=== PATIENT | male | born 1970 | race African-American/Black ===

== ENCOUNTER 2023-01-21 01:17 | Inpatient (IN) | payer MEDICAID ==
[~2023-01-21] VITALS: Ht 180.3 cm; Wt 106.3 kg
[2023-01-21] MEDS ORDERED: MORPHINE SULFATE 4 MG/ML CPJ (NOT FOR IM USE) IV ONE (02:15)
[2023-01-21] MEDS ORDERED: HYDRALAZINE 20MG/ML VIAL IV ONE (02:15)
[2023-01-21] MEDS ORDERED: ONDANSETRON HCL 4MG/2ML INJ IV ONE ×2 (02:15→03:00)
[2023-01-21 02:18] LABS: BASOPHILS % 0.4 % (0.0-2.0); EOSINOPHILS % 1.9 % (0.0-5.0); HEMATOCRIT. 48.5 % (42.0-52.0); HEMOGLOBIN. 16.4 g/dL (14.0-18.0); LYMPHOCYTES % 27.2 % (20.0-50.0); MEAN CORPUSCULAR HEMOGLOBIN 27.8 pg (28.0-32.0); MEAN CORPUSCULAR VOLUME 82.1 fL (80.0-94.0); MEAN PLATELET VOLUME 7.6 fl (7.4-10.4); MONOCYTES % 6.6 % (2.0-8.0); NEUTROPHILS % 63.9 % (40.0-76.0); PLATELET 181 x1000/uL (130-400); RED BLOOD CELL COUNT 5.91 mill/uL (4.7-6.1); RED CELL DISTRIBUTION WIDTH 14.6 % (11.6-14.6)
[2023-01-21 02:27] LABS: CHLORIDE 107 mEq/L (98-107)
[2023-01-21] MEDS ORDERED: LORAZEPAM 2MG/ML CPJ IV ONE (02:45)
[2023-01-21] MEDS ORDERED: HYDROMORPHONE HCL/PF 2MG/ML CPJ IV ONE (03:15)
[2023-01-21] MEDS ORDERED: HYDROMORPHONE HCL/PF 2MG/ML CPJ IV NR (03:30)
[2023-01-21 03:59] LABS: *AMPHETAMINES SCREEN URINE NEGATIVE (NEGATIVE); *BARBITURATES SCREEN URINE NEGATIVE (NEGATIVE); *BENZODIAZEPINES SCREEN URINE NEGATIVE (NEGATIVE); *COCAINE SCREEN URINE NEGATIVE (NEGATIVE); CANNABINOID URINE SCREEN NEGATIVE (NEGATIVE); METHADONE URINE SCREEN NEGATIVE (NEGATIVE); OPIATES URINE SCREEN NEGATIVE (NEGATIVE); PHENCYCLIDINE URINE SCREEN NEGATIVE (NEGATIVE)
[2023-01-21] MEDS ORDERED: HYDROCODONE/ACETAMINOPHEN 5/325MG TABLET PO NR (09:45)
[2023-01-21] MEDS ORDERED: ONDANSETRON HCL 4MG/2ML INJ IV PRN (11:00)
[2023-01-21] MEDS: AMLODIPINE 10MG TABLET PO SCH (11:12)
[2023-01-21] MEDS: HYDRALAZINE HCL 50MG TABLET PO SCH ×2 (12:24→20:30)
[2023-01-21] MEDS: ENOXAPARIN 30MG/0.3ML SYR SUBCUT SCH ×2 (13:05→20:29)
[2023-01-21] MEDS: NITROGLYCERIN OINT 1GM/INCH UDPKT TD SCH ×2 (14:38→20:31)
[2023-01-21] MEDS ORDERED: CLONIDINE 0.2MG TABLET PO NR (17:15)
[2023-01-21] MEDS ORDERED: DOCUSATE SODIUM 250MG CAPSULE PO PRN (17:15)
[2023-01-21] MEDS ORDERED: LOSARTAN POTASSIUM 100 MG TABLET PO SCH (18:15)
[2023-01-21 20:00] VITALS: BP 169/96
[2023-01-21] MEDS: ACETAMINOPHEN 325MG TABLET PO PRN (20:30)
[2023-01-21 22:18] VITALS: BP 169/96
[2023-01-21] MEDS: HYDROCODONE/ACETAMINOPHEN 10/325MG TABLET PO PRN (22:55)
[2023-01-21] MEDS: CLONIDINE 0.1MG TABLET PO PRN (22:55)
[2023-01-21 23:50] VITALS: BP 161/73
[2023-01-21] MEDS ORDERED: METO-396 PO (23:54)
[2023-01-21] MEDS ORDERED: AMLO2.5T45 PO (23:54)
[2023-01-22] VITALS (67 sets, daily range): BP systolic 101–157; BP diastolic 45–93
[2023-01-22] MEDS ORDERED: IOHEXOL-300 100 ML BOTTLE ONE (03:32)
[2023-01-22] MEDS: HYDROCODONE/ACETAMINOPHEN 10/325MG TABLET PO PRN (04:16)
[2023-01-22] MEDS ORDERED: NALOXONE HCL 0.4MG/ML VIAL IV PRN (05:30)
[2023-01-22] MEDS ORDERED: NITROGLYCERIN OINT 1GM/INCH UDPKT TD SCH (06:00)
[2023-01-22] MEDS ORDERED: HYDRALAZINE HCL 50MG TABLET PO SCH ×2 (06:00→14:00)
[2023-01-22] MEDS: LORAZEPAM 2MG/ML CPJ IV PRN ×2 (08:19→19:18)
[2023-01-22] MEDS: AMLODIPINE 10MG TABLET PO SCH (08:20)
[2023-01-22] MEDS ORDERED: LOSARTAN POTASSIUM 100 MG TABLET PO SCH (09:00)
[2023-01-22] MEDS ORDERED: ASPIRIN 81MG TABLET PO SCH (09:00)
[2023-01-22] MEDS: LABETALOL HCL 100 MG in DEXT 5% WATER 80 ML IV PRN ×6 (10:13→23:02)
[2023-01-22 10:59] LABS: HEMATOCRIT. 42.2 % (42.0-52.0); HEMOGLOBIN. 14.3 g/dL (14.0-18.0); MEAN CORPUSCULAR HEMOGLOBIN 27.7 pg (28.0-32.0); MEAN CORPUSCULAR VOLUME 81.5 fL (80.0-94.0); MEAN PLATELET VOLUME 8.4 fl (7.4-10.4); PLATELET 145 x1000/uL (130-400); RED BLOOD CELL COUNT 5.18 mill/uL (4.7-6.1)
[2023-01-22] MEDS: NITROGLYCERIN OINT 1GM/INCH UDPKT TD SCH ×3 (11:49→23:01)
[2023-01-22 13:22] LABS: PLATELET ESTIMATE NORMAL
[2023-01-22] MEDS: HYDRALAZINE HCL 50MG TABLET PO SCH ×2 (14:02→21:29)
[2023-01-22] MEDS: PIPERACILLIN/TAZOBACTAM 3.375 G in DEXTROSE 5% WATER 50 ML IV SCH ×2 (14:53→21:29)
[2023-01-22] MEDS ORDERED: VANCOMYCIN 2,000 MG in DEXT 5% WATER 500 ML IV NR (16:00)
[2023-01-22] MEDS ORDERED: IOHEXOL-350 100 ML BOTTLE ONE ×2 (16:43)
[2023-01-22] MEDS: DEXT 5%/0.9% NACL 1,000 ML IV SCH (17:39)
[2023-01-22] MEDS ORDERED: SODIUM POLYSTYRENE SULFONATE 15 G/60 ML BOT PO NR (18:29)
[2023-01-22 18:49] LABS: CREATINE KINASE 366 IU/L (39-308)
[2023-01-22 19:15] LABS: BG BASE EXCESS -3.6 mmol/L (-2.0-2.0); BG CARBOXYHEMOGLOBIN 0.7 % (0.5-1.5); BG DEOXYHEMOGLOBIN 8.6 % (0.0-5.0); BG FRACTION INSPIRED OXYGEN 21; BG HCO3 ACT 19.1 mmol/L (22.0-26.0); BG METHEMOGLOBIN 0.6 % (0.0-1.5); BG OXYGEN SATURATION 91.3 % (92.0-98.5); BG OXYHEMOGLOBIN 90.1 % (94.0-97.0); BG PCO2 28.7 mmHg (35.0-45.0); BG PO2 56.1 mmHg (75.0-100.0); BG SAMPLE SITE RIGHT RADIAL; BG VENT MODE ROOM AIR
[2023-01-23] VITALS (72 sets, daily range): BP systolic 104–163; BP diastolic 45–101
[2023-01-23] MEDS: ACETAMINOPHEN 325MG TABLET PO PRN (01:44)
[2023-01-23] MEDS: LABETALOL HCL 100 MG in DEXT 5% WATER 80 ML IV PRN ×6 (02:15→22:28)
[2023-01-23] MEDS: DEXT 5%/0.9% NACL 1,000 ML IV SCH ×3 (02:15→22:01)
[2023-01-23] MEDS: HYDROCODONE/ACETAMINOPHEN 10/325MG TABLET PO PRN ×3 (03:03→22:28)
[2023-01-23] MEDS ORDERED: VANCOMYCIN 1G PREMIX 200 ML IV SCH (04:00)
[2023-01-23] MEDS: LORAZEPAM 2MG/ML CPJ IV PRN ×2 (05:19→09:27)
[2023-01-23] MEDS: HYDRALAZINE HCL 50MG TABLET PO SCH (05:28)
[2023-01-23] MEDS: PIPERACILLIN/TAZOBACTAM 3.375 G in DEXTROSE 5% WATER 50 ML IV SCH ×3 (05:28→19:19)
[2023-01-23] MEDS: NITROGLYCERIN OINT 1GM/INCH UDPKT TD SCH ×3 (05:28→22:01)
[2023-01-23 05:33] LABS: HEMOGLOBIN. 13.9 g/dL (14.0-18.0); MEAN CORPUSCULAR HEMOGLOBIN 27.4 pg (28.0-32.0); MEAN CORPUSCULAR VOLUME 82.5 fL (80.0-94.0); MEAN PLATELET VOLUME 8.3 fl (7.4-10.4); PLATELET 82 x1000/uL (130-400); RED BLOOD CELL COUNT 5.09 mill/uL (4.7-6.1); RED CELL DISTRIBUTION WIDTH 15.5 % (11.6-14.6)
[2023-01-23] MEDS ORDERED: LOSARTAN POTASSIUM 25 MG TABLET PO SCH (09:00)
[2023-01-23] MEDS: PANTOPRAZOLE SODIUM 40 MG/VIAL IV SCH (09:27)
[2023-01-23 10:17] LABS: INR 1.3; PARTIAL THROMBOPLASTIN TIME 33.9 sec (23.4-31.0)
[2023-01-23] MEDS ORDERED: HEPARIN 1000 UNITS/ML 10ML ONE (10:30)
[2023-01-23 10:38] LABS: PLATELET ESTIMATE DECREASED
[2023-01-23 10:39] LABS: CLARITY URINE TURBID (CLEAR); COLOR URINE DARK YELLOW (YELLOW); KETONES URINE TRACE (NEGATIVE); LEUKOCYTE ESTERASE URINE 1+ (NEGATIVE); NITRITE URINE NEGATIVE (NEGATIVE); OCCULT BLOOD URINE 3+ (NEGATIVE); PH URINE 5.5 (4.5-8.0); PROTEIN URINE 3+ (NEGATIVE); SPECIFIC GRAVITY URINE 1.041 (1.005-1.030)
[2023-01-23 15:09] LABS: HEPATITIS B SURFACE ANTIGEN NEGATIVE
[2023-01-24] VITALS (90 sets, daily range): BP systolic 87–144; BP diastolic 55–92
[2023-01-24] MEDS: LORAZEPAM 2MG/ML CPJ IV PRN ×3 (00:37→15:14)
[2023-01-24] MEDS: LABETALOL HCL 100 MG in DEXT 5% WATER 80 ML IV PRN ×5 (01:05→22:11)
[2023-01-24] MEDS: IPRATROPIUM BROMIDE (0.02%) 0.5MG/2.5ML NEB HHN SCH ×2 (04:21→15:19)
[2023-01-24] MEDS: ACETAMINOPHEN 325MG TABLET PO PRN (04:49)
[2023-01-24] MEDS: NITROGLYCERIN OINT 1GM/INCH UDPKT TD SCH ×3 (04:51→22:06)
[2023-01-24 05:32] LABS: HEMATOCRIT. 38.7 % (42.0-52.0); HEMOGLOBIN. 13.1 g/dL (14.0-18.0); MEAN CORPUSCULAR HEMOGLOBIN 27.6 pg (28.0-32.0); MEAN CORPUSCULAR VOLUME 81.3 fL (80.0-94.0); MEAN PLATELET VOLUME 8.9 fl (7.4-10.4); PLATELET 82 x1000/uL (130-400); RED BLOOD CELL COUNT 4.76 mill/uL (4.7-6.1); RED CELL DISTRIBUTION WIDTH 15.5 % (11.6-14.6)
[2023-01-24] MEDS: PANTOPRAZOLE SODIUM 40 MG/VIAL IV SCH (08:20)
[2023-01-24] MEDS: PIPERACILLIN/TAZOBACTAM 3.375 G in DEXTROSE 5% WATER 50 ML IV SCH ×2 (08:20→20:52)
[2023-01-24 09:37] LABS: PLATELET ESTIMATE DECREASED
[2023-01-24 09:55] LABS: BG BASE EXCESS -4.3 mmol/L (-2.0-2.0); BG CARBOXYHEMOGLOBIN 0.6 % (0.5-1.5); BG DEOXYHEMOGLOBIN 3.8 % (0.0-5.0); BG HCO3 ACT 19.5 mmol/L (22.0-26.0); BG METHEMOGLOBIN 0.2 % (0.0-1.5); BG OXYGEN SATURATION 96.2 % (92.0-98.5); BG OXYHEMOGLOBIN 95.4 % (94.0-97.0); BG PCO2 32.5 mmHg (35.0-45.0); BG PH 7.397 (7.350-7.450); BG PO2 81.9 mmHg (75.0-100.0); BG SAMPLE SITE RIGHT RADIAL; BG TOTAL HEMOGLOBIN 14.1 g/dL (12.0-18.0); BG VENT MODE ROOM AIR
[2023-01-24] MEDS ORDERED: LORAZEPAM 2MG/ML CPJ IV PRN (10:35)
[2023-01-24] MEDS ORDERED: VANCOMYCIN 1G PREMIX 200 ML IV NR (18:00)
[2023-01-25] VITALS (86 sets, daily range): BP systolic 93–144; BP diastolic 55–89
[2023-01-25] MEDS: ACETAMINOPHEN 325MG TABLET PO PRN ×2 (00:41→22:19)
[2023-01-25] MEDS: LABETALOL HCL 100 MG in DEXT 5% WATER 80 ML IV PRN ×5 (00:41→19:59)
[2023-01-25 05:41] LABS: HEMATOCRIT. 39.3 % (42.0-52.0); HEMOGLOBIN. 13.1 g/dL (14.0-18.0); MEAN CORPUSCULAR HEMOGLOBIN 27.4 pg (28.0-32.0); MEAN PLATELET VOLUME 8.6 fl (7.4-10.4); PLATELET 91 x1000/uL (130-400); RED CELL DISTRIBUTION WIDTH 15.8 % (11.6-14.6)
[2023-01-25] MEDS: NITROGLYCERIN OINT 1GM/INCH UDPKT TD SCH ×3 (06:25→22:19)
[2023-01-25 07:24] LABS: PLATELET ESTIMATE DECREASED
[2023-01-25] MEDS: PIPERACILLIN/TAZOBACTAM 3.375 G in DEXTROSE 5% WATER 50 ML IV SCH ×2 (08:01→20:28)
[2023-01-25] MEDS: PANTOPRAZOLE SODIUM 40 MG/VIAL IV SCH (08:01)
[2023-01-25] MEDS: IPRATROPIUM BROMIDE (0.02%) 0.5MG/2.5ML NEB HHN SCH ×3 (08:09→21:06)
[2023-01-25] MEDS: LORAZEPAM 2MG/ML CPJ IV PRN (13:55)
[2023-01-26] VITALS (73 sets, daily range): BP systolic 99–153; BP diastolic 46–102
[2023-01-26] MEDS: LABETALOL HCL 100 MG in DEXT 5% WATER 80 ML IV PRN ×8 (00:03→23:53)
[2023-01-26] MEDS: IPRATROPIUM BROMIDE (0.02%) 0.5MG/2.5ML NEB HHN SCH ×4 (02:13→20:29)
[2023-01-26] MEDS: LORAZEPAM 2MG/ML CPJ IV PRN (02:42)
[2023-01-26] MEDS: NITROGLYCERIN OINT 1GM/INCH UDPKT TD SCH ×3 (05:41→21:37)
[2023-01-26 05:42] LABS: HEMATOCRIT. 38.3 % (42.0-52.0); HEMOGLOBIN. 12.8 g/dL (14.0-18.0); MEAN CORPUSCULAR HEMOGLOBIN 27.2 pg (28.0-32.0); MEAN CORPUSCULAR VOLUME 81.7 fL (80.0-94.0); MEAN PLATELET VOLUME 8.4 fl (7.4-10.4); PLATELET 77 x1000/uL (130-400); RED BLOOD CELL COUNT 4.69 mill/uL (4.7-6.1); RED CELL DISTRIBUTION WIDTH 15.5 % (11.6-14.6)
[2023-01-26 07:51] LABS: PLATELET ESTIMATE DECREASED
[2023-01-26] MEDS: PIPERACILLIN/TAZOBACTAM 3.375 G in DEXTROSE 5% WATER 50 ML IV SCH ×2 (09:00→20:18)
[2023-01-26] MEDS: PANTOPRAZOLE SODIUM 40 MG/VIAL IV SCH (09:00)
[2023-01-26] MEDS: ACETAMINOPHEN 325MG TABLET PO PRN ×2 (14:27→20:19)
[2023-01-26] MEDS: HYDROCODONE/ACETAMINOPHEN 10/325MG TABLET PO PRN (14:38)
[2023-01-26] MEDS: CEFEPIME 1,000 MG in DEXTROSE 5% WATER 50 ML IV SCH (21:12)
[2023-01-27] VITALS (87 sets, daily range): BP systolic 106–156; BP diastolic 55–98
[2023-01-27] MEDS: LORAZEPAM 2MG/ML CPJ IV PRN ×3 (01:22→22:32)
[2023-01-27] MEDS: LABETALOL HCL 100 MG in DEXT 5% WATER 80 ML IV PRN ×9 (01:55→22:26)
[2023-01-27] MEDS: IPRATROPIUM BROMIDE (0.02%) 0.5MG/2.5ML NEB HHN SCH ×3 (02:12→20:30)
[2023-01-27 06:04] LABS: HEMATOCRIT. 38.9 % (42.0-52.0); HEMOGLOBIN. 13.1 g/dL (14.0-18.0); MEAN CORPUSCULAR HEMOGLOBIN 27.4 pg (28.0-32.0); MEAN CORPUSCULAR VOLUME 81.5 fL (80.0-94.0); MEAN PLATELET VOLUME 8.4 fl (7.4-10.4); PLATELET 113 x1000/uL (130-400); RED BLOOD CELL COUNT 4.78 mill/uL (4.7-6.1); RED CELL DISTRIBUTION WIDTH 15.7 % (11.6-14.6)
[2023-01-27] MEDS: NITROGLYCERIN OINT 1GM/INCH UDPKT TD SCH ×3 (06:05→22:21)
[2023-01-27] MEDS: ACETAMINOPHEN 325MG TABLET PO PRN ×2 (06:06→16:28)
[2023-01-27] MEDS: PANTOPRAZOLE SODIUM 40 MG/VIAL IV SCH (08:30)
[2023-01-27 10:04] LABS: PLATELET ESTIMATE SLIGHTLY DECREASED
[2023-01-27] MEDS: CEFEPIME 1,000 MG in DEXTROSE 5% WATER 50 ML IV SCH (22:19)
[2023-01-28] VITALS (84 sets, daily range): BP systolic 114–167; BP diastolic 45–99
[2023-01-28] MEDS: LABETALOL HCL 100 MG in DEXT 5% WATER 80 ML IV PRN ×2 (00:18→01:53)
[2023-01-28] MEDS: IPRATROPIUM BROMIDE (0.02%) 0.5MG/2.5ML NEB HHN SCH ×4 (01:25→20:23)
[2023-01-28] MEDS: LORAZEPAM 2MG/ML CPJ IV PRN (02:37)
[2023-01-28] MEDS: NICARDIPINE 100 MG in SODIUM CHLORIDE 0.9% 60 ML IV PRN ×3 (02:39→21:22)
[2023-01-28 06:58] LABS: BASOPHILS % 0.2 % (0.0-2.0); EOSINOPHILS % 3.9 % (0.0-5.0); HEMATOCRIT. 38.6 % (42.0-52.0); HEMOGLOBIN. 12.9 g/dL (14.0-18.0); LYMPHOCYTES % 7.2 % (20.0-50.0); MEAN CORPUSCULAR HEMOGLOBIN 27.2 pg (28.0-32.0); MEAN CORPUSCULAR VOLUME 81.4 fL (80.0-94.0); MEAN PLATELET VOLUME 8.5 fl (7.4-10.4); MONOCYTES % 13.1 % (2.0-8.0); NEUTROPHILS % 75.6 % (40.0-76.0); PLATELET 125 x1000/uL (130-400); RED BLOOD CELL COUNT 4.74 mill/uL (4.7-6.1); RED CELL DISTRIBUTION WIDTH 15.1 % (11.6-14.6)
[2023-01-28] MEDS: ZINC SULFATE 220 MG ( 50 ) CAPSULE PO SCH (08:21)
[2023-01-28] MEDS: MULTIVITAMINS,THER W-MINERALS TABLET PO SCH (08:21)
[2023-01-28] MEDS: PANTOPRAZOLE SODIUM 40 MG/VIAL IV SCH (08:22)
[2023-01-28] MEDS: ACETAMINOPHEN 325MG TABLET PO PRN ×2 (09:29→16:55)
[2023-01-28] MEDS: NITROGLYCERIN OINT 1GM/INCH UDPKT TD SCH ×2 (15:52→21:19)
[2023-01-28] MEDS: AMLODIPINE 10MG TABLET PO SCH (15:53)
[2023-01-28] MEDS: HYDRALAZINE HCL 50MG TABLET PO SCH (21:16)
[2023-01-28] MEDS: METOPROLOL TARTRATE 25MG TABLET PO SCH (21:18)
[2023-01-28] MEDS: CEFEPIME 1,000 MG in DEXTROSE 5% WATER 50 ML IV SCH (21:20)
[2023-01-29] VITALS (87 sets, daily range): BP systolic 95–170; BP diastolic 32–91
[2023-01-29] MEDS: IPRATROPIUM BROMIDE (0.02%) 0.5MG/2.5ML NEB HHN SCH ×3 (00:30→21:17)
[2023-01-29] MEDS: LORAZEPAM 2MG/ML CPJ IV PRN (03:14)
[2023-01-29] MEDS: CLONIDINE 0.1MG TABLET PO PRN (03:36)
[2023-01-29] MEDS: NICARDIPINE 100 MG in SODIUM CHLORIDE 0.9% 60 ML IV PRN (05:15)
[2023-01-29 05:39] LABS: HEMATOCRIT. 38.2 % (42.0-52.0); HEMOGLOBIN. 13.1 g/dL (14.0-18.0); MEAN CORPUSCULAR HEMOGLOBIN 27.6 pg (28.0-32.0); MEAN CORPUSCULAR VOLUME 80.3 fL (80.0-94.0); MEAN PLATELET VOLUME 8.4 fl (7.4-10.4); PLATELET 199 x1000/uL (130-400); RED BLOOD CELL COUNT 4.76 mill/uL (4.7-6.1); RED CELL DISTRIBUTION WIDTH 15.3 % (11.6-14.6)
[2023-01-29] MEDS: NITROGLYCERIN OINT 1GM/INCH UDPKT TD SCH ×3 (05:59→22:16)
[2023-01-29] MEDS: MULTIVITAMINS,THER W-MINERALS TABLET PO SCH (08:16)
[2023-01-29] MEDS: ZINC SULFATE 220 MG ( 50 ) CAPSULE PO SCH (08:17)
[2023-01-29] MEDS: METOPROLOL TARTRATE 25MG TABLET PO SCH (08:17)
[2023-01-29] MEDS: PANTOPRAZOLE SODIUM 40 MG/VIAL IV SCH (08:17)
[2023-01-29] MEDS: AMLODIPINE 10MG TABLET PO SCH (08:17)
[2023-01-29] MEDS: HYDRALAZINE HCL 50MG TABLET PO SCH (08:22)
[2023-01-29] MEDS ORDERED: NICARDIPINE 100 MG in SODIUM CHLORIDE 0.9% 60 ML IV PRN (10:45)
[2023-01-29 12:28] LABS: PLATELET ESTIMATE NORMAL
[2023-01-29] MEDS: ACETAMINOPHEN 325MG TABLET PO PRN (14:59)
[2023-01-29] MEDS ORDERED: AMIODARONE HCL 150 MG in DEXT 5% WATER 100 ML IV NR (15:45)
[2023-01-29] MEDS: AMIODARONE HCL 900 MG in DEXT 5% WATER 482 ML IV SCH (16:31)
[2023-01-29] MEDS: HYDRALAZINE HCL 100MG TABLET PO SCH (17:22)
[2023-01-29] MEDS: CEFEPIME 1,000 MG in DEXTROSE 5% WATER 50 ML IV SCH (20:44)
[2023-01-29] MEDS: METOPROLOL TARTRATE 50MG TABLET PO SCH (20:45)
[2023-01-29] MEDS: NICARDIPINE 100 MG in SODIUM CHLORIDE 0.9% 60 ML IV SCH (22:15)
[2023-01-30] VITALS (52 sets, daily range): BP systolic 96–168; BP diastolic 46–101
[2023-01-30] MEDS: HYDRALAZINE HCL 100MG TABLET PO SCH ×3 (01:26→17:00)
[2023-01-30 06:03] LABS: BASOPHILS % 0.3 % (0.0-2.0); EOSINOPHILS % 3.5 % (0.0-5.0); HEMATOCRIT. 38.9 % (42.0-52.0); HEMOGLOBIN. 13.6 g/dL (14.0-18.0); LYMPHOCYTES % 7.4 % (20.0-50.0); MEAN CORPUSCULAR HEMOGLOBIN 27.9 pg (28.0-32.0); MEAN CORPUSCULAR VOLUME 79.5 fL (80.0-94.0); MEAN PLATELET VOLUME 8.1 fl (7.4-10.4); MONOCYTES % 14.3 % (2.0-8.0); NEUTROPHILS % 74.5 % (40.0-76.0); PLATELET 260 x1000/uL (130-400); RED BLOOD CELL COUNT 4.89 mill/uL (4.7-6.1); RED CELL DISTRIBUTION WIDTH 15.1 % (11.6-14.6)
[2023-01-30] MEDS: NITROGLYCERIN OINT 1GM/INCH UDPKT TD SCH ×3 (06:31→17:36)
[2023-01-30] MEDS: PANTOPRAZOLE SODIUM 40 MG/VIAL IV SCH (08:54)
[2023-01-30] MEDS: MULTIVITAMINS,THER W-MINERALS TABLET PO SCH (08:54)
[2023-01-30] MEDS: ZINC SULFATE 220 MG ( 50 ) CAPSULE PO SCH (08:54)
[2023-01-30] MEDS: AMLODIPINE 10MG TABLET PO SCH (09:00)
[2023-01-30] MEDS: METOPROLOL TARTRATE 50MG TABLET PO SCH ×2 (11:04→21:24)
[2023-01-30] MEDS: NIFEDIPINE XL 60MG TAB PO SCH ×2 (15:25→17:00)
[2023-01-30] MEDS: AMIODARONE HCL 200 MG TABLET PO SCH ×2 (15:25→21:24)
[2023-01-30] MEDS: RISPERIDONE 0.25MG TABLET PO SCH (15:25)
[2023-01-30] MEDS: AMIODARONE HCL 900 MG in DEXT 5% WATER 482 ML IV SCH ×2 (17:37→21:25)
[2023-01-30] MEDS: NICARDIPINE 100 MG in SODIUM CHLORIDE 0.9% 60 ML IV SCH ×2 (17:38→18:55)
[2023-01-30] MEDS: CEFEPIME 1,000 MG in DEXTROSE 5% WATER 50 ML IV SCH (21:43)
[2023-01-31] VITALS (49 sets, daily range): BP systolic 90–138; BP diastolic 52–83
[2023-01-31] MEDS: NITROGLYCERIN OINT 1GM/INCH UDPKT TD SCH ×5 (00:03→23:46)
[2023-01-31] MEDS: ACETAMINOPHEN 325MG TABLET PO PRN (00:09)
[2023-01-31] MEDS: IPRATROPIUM/ALBUTEROL 0.5-3(2.5)MG/3ML NEB HHN SCH ×3 (00:38→16:53)
[2023-01-31] MEDS: HYDRALAZINE HCL 100MG TABLET PO SCH ×3 (01:04→17:52)
[2023-01-31 05:30] LABS: HEMATOCRIT. 40.1 % (42.0-52.0); HEMOGLOBIN. 13.2 g/dL (14.0-18.0); MEAN CORPUSCULAR HEMOGLOBIN 27.1 pg (28.0-32.0); MEAN CORPUSCULAR VOLUME 82.1 fL (80.0-94.0); MEAN PLATELET VOLUME 8.1 fl (7.4-10.4); PLATELET 295 x1000/uL (130-400); RED BLOOD CELL COUNT 4.88 mill/uL (4.7-6.1); RED CELL DISTRIBUTION WIDTH 15.3 % (11.6-14.6)
[2023-01-31] MEDS: AMIODARONE HCL 200 MG TABLET PO SCH ×2 (08:27→20:51)
[2023-01-31] MEDS: ZINC SULFATE 220 MG ( 50 ) CAPSULE PO SCH (08:27)
[2023-01-31] MEDS: PANTOPRAZOLE SODIUM 40 MG/VIAL IV SCH (08:27)
[2023-01-31] MEDS: NIFEDIPINE XL 60MG TAB PO SCH ×2 (08:28→17:52)
[2023-01-31] MEDS: MULTIVITAMINS,THER W-MINERALS TABLET PO SCH (08:28)
[2023-01-31] MEDS: RISPERIDONE 0.25MG TABLET PO SCH (08:28)
[2023-01-31] MEDS: METOPROLOL TARTRATE 50MG TABLET PO SCH ×2 (08:29→20:51)
[2023-01-31] MEDS: AMLODIPINE 10MG TABLET PO SCH (08:29)
[2023-01-31] MEDS: ASPIRIN 81MG EC TABLET PO SCH (11:46)
[2023-01-31 12:36] LABS: PLATELET ESTIMATE NORMAL
[2023-01-31] MEDS: CEFEPIME 1,000 MG in DEXTROSE 5% WATER 50 ML IV SCH (20:51)
[2023-02-01] VITALS (37 sets, daily range): BP systolic 114–154; BP diastolic 61–96
[2023-02-01] MEDS: IPRATROPIUM/ALBUTEROL 0.5-3(2.5)MG/3ML NEB HHN SCH ×3 (01:03→16:51)
[2023-02-01] MEDS: HYDRALAZINE HCL 100MG TABLET PO SCH ×3 (01:10→17:06)
[2023-02-01] MEDS: NITROGLYCERIN OINT 1GM/INCH UDPKT TD SCH ×4 (05:23→23:22)
[2023-02-01 05:38] LABS: HEMATOCRIT. 37.2 % (42.0-52.0); HEMOGLOBIN. 12.6 g/dL (14.0-18.0); MEAN CORPUSCULAR HEMOGLOBIN 27.3 pg (28.0-32.0); MEAN CORPUSCULAR VOLUME 80.6 fL (80.0-94.0); MEAN PLATELET VOLUME 7.9 fl (7.4-10.4); PLATELET 331 x1000/uL (130-400); RED BLOOD CELL COUNT 4.62 mill/uL (4.7-6.1); RED CELL DISTRIBUTION WIDTH 15.2 % (11.6-14.6)
[2023-02-01] MEDS: METOPROLOL TARTRATE 50MG TABLET PO SCH ×2 (08:42→21:27)
[2023-02-01] MEDS: ZINC SULFATE 220 MG ( 50 ) CAPSULE PO SCH (08:42)
[2023-02-01] MEDS: AMIODARONE HCL 200 MG TABLET PO SCH ×2 (08:42→21:28)
[2023-02-01] MEDS: ASPIRIN 81MG EC TABLET PO SCH (08:42)
[2023-02-01] MEDS: MULTIVITAMINS,THER W-MINERALS TABLET PO SCH (08:42)
[2023-02-01] MEDS: AMLODIPINE 10MG TABLET PO SCH (08:42)
[2023-02-01] MEDS: RISPERIDONE 0.25MG TABLET PO SCH (08:43)
[2023-02-01] MEDS: NIFEDIPINE XL 60MG TAB PO SCH ×2 (08:43→17:06)
[2023-02-01] MEDS: PANTOPRAZOLE SODIUM 40 MG/VIAL IV SCH (08:43)
[2023-02-01 09:35] LABS: PLATELET ESTIMATE NORMAL
[2023-02-01] MEDS: CEFEPIME 1,000 MG in DEXTROSE 5% WATER 50 ML IV SCH (21:27)
[2023-02-02] VITALS (15 sets, daily range): BP systolic 114–139; BP diastolic 46–81
[2023-02-02] MEDS: HYDRALAZINE HCL 100MG TABLET PO SCH ×3 (00:27→16:58)
[2023-02-02] MEDS: NITROGLYCERIN OINT 1GM/INCH UDPKT TD SCH ×3 (05:38→17:54)
[2023-02-02] MEDS: IPRATROPIUM BROMIDE (0.02%) 0.5MG/2.5ML NEB HHN SCH ×2 (07:41→17:13)
[2023-02-02] MEDS: ALBUTEROL (0.083%) 2.5MG/3ML NEB HHN SCH ×2 (07:41→17:13)
[2023-02-02] MEDS: MULTIVITAMINS,THER W-MINERALS TABLET PO SCH (08:10)
[2023-02-02] MEDS: ZINC SULFATE 220 MG ( 50 ) CAPSULE PO SCH (08:10)
[2023-02-02] MEDS: PANTOPRAZOLE SODIUM 40 MG/VIAL IV SCH (08:10)
[2023-02-02] MEDS: NIFEDIPINE XL 60MG TAB PO SCH ×2 (08:10→16:58)
[2023-02-02] MEDS: AMLODIPINE 10MG TABLET PO SCH (08:11)
[2023-02-02] MEDS: RISPERIDONE 0.25MG TABLET PO SCH (08:11)
[2023-02-02] MEDS: AMIODARONE HCL 200 MG TABLET PO SCH ×2 (08:11→21:35)
[2023-02-02] MEDS: METOPROLOL TARTRATE 50MG TABLET PO SCH ×2 (08:12→21:35)
[2023-02-02] MEDS: ASPIRIN 81MG EC TABLET PO SCH (08:12)
[2023-02-02] MEDS: CEFEPIME 1,000 MG in DEXTROSE 5% WATER 50 ML IV SCH (21:34)
[2023-02-03] VITALS (17 sets, daily range): BP systolic 89–139; BP diastolic 39–78
[2023-02-03] MEDS: IPRATROPIUM BROMIDE (0.02%) 0.5MG/2.5ML NEB HHN SCH ×3 (00:49→16:15)
[2023-02-03] MEDS: ALBUTEROL (0.083%) 2.5MG/3ML NEB HHN SCH ×3 (00:49→16:15)
[2023-02-03] MEDS: HYDRALAZINE HCL 100MG TABLET PO SCH ×3 (01:00→17:18)
[2023-02-03] MEDS: NITROGLYCERIN OINT 1GM/INCH UDPKT TD SCH ×4 (01:01→17:21)
[2023-02-03 07:16] LABS: HEMATOCRIT. 36.3 % (42.0-52.0); HEMOGLOBIN. 12.4 g/dL (14.0-18.0); MEAN CORPUSCULAR HEMOGLOBIN 27.6 pg (28.0-32.0); MEAN PLATELET VOLUME 7.9 fl (7.4-10.4); PLATELET 389 x1000/uL (130-400); RED BLOOD CELL COUNT 4.48 mill/uL (4.7-6.1); RED CELL DISTRIBUTION WIDTH 14.9 % (11.6-14.6)
[2023-02-03] MEDS: PANTOPRAZOLE SODIUM 40 MG/VIAL IV SCH (08:29)
[2023-02-03] MEDS: AMLODIPINE 10MG TABLET PO SCH (08:30)
[2023-02-03] MEDS: RISPERIDONE 0.25MG TABLET PO SCH (08:30)
[2023-02-03] MEDS: MULTIVITAMINS,THER W-MINERALS TABLET PO SCH (08:30)
[2023-02-03] MEDS: METOPROLOL TARTRATE 50MG TABLET PO SCH ×2 (08:30→21:01)
[2023-02-03] MEDS: NIFEDIPINE XL 60MG TAB PO SCH ×2 (08:30→17:18)
[2023-02-03] MEDS: ZINC SULFATE 220 MG ( 50 ) CAPSULE PO SCH (08:30)
[2023-02-03] MEDS: ASPIRIN 81MG EC TABLET PO SCH (08:31)
[2023-02-03] MEDS: ACETAMINOPHEN 325MG TABLET PO PRN ×2 (08:31→21:34)
[2023-02-03] MEDS: AMIODARONE HCL 200 MG TABLET PO SCH ×2 (08:36→21:01)
[2023-02-03 13:25] LABS: PLATELET ESTIMATE NORMAL
[2023-02-03] MEDS: CEFEPIME 1,000 MG in DEXTROSE 5% WATER 50 ML IV SCH (21:01)
[2023-02-04] VITALS (11 sets, daily range): BP systolic 95–132; BP diastolic 42–76
[2023-02-04] MEDS: ALBUTEROL (0.083%) 2.5MG/3ML NEB HHN SCH ×4 (00:15→15:35)
[2023-02-04] MEDS: IPRATROPIUM BROMIDE (0.02%) 0.5MG/2.5ML NEB HHN SCH ×3 (00:16→15:35)
[2023-02-04] MEDS: NITROGLYCERIN OINT 1GM/INCH UDPKT TD SCH ×4 (00:41→18:07)
[2023-02-04] MEDS: HYDRALAZINE HCL 100MG TABLET PO SCH ×3 (00:41→18:07)
[2023-02-04 07:36] LABS: HEMATOCRIT. 35.6 % (42.0-52.0); MEAN CORPUSCULAR HEMOGLOBIN 27.3 pg (28.0-32.0); MEAN CORPUSCULAR VOLUME 80.7 fL (80.0-94.0); MEAN PLATELET VOLUME 7.9 fl (7.4-10.4); PLATELET 409 x1000/uL (130-400); RED BLOOD CELL COUNT 4.41 mill/uL (4.7-6.1); RED CELL DISTRIBUTION WIDTH 14.9 % (11.6-14.6)
[2023-02-04] MEDS: PANTOPRAZOLE SODIUM 40 MG/VIAL IV SCH (09:21)
[2023-02-04] MEDS: NIFEDIPINE XL 60MG TAB PO SCH ×2 (09:22→18:07)
[2023-02-04] MEDS: AMIODARONE HCL 200 MG TABLET PO SCH ×2 (09:22→21:43)
[2023-02-04] MEDS: ZINC SULFATE 220 MG ( 50 ) CAPSULE PO SCH (09:22)
[2023-02-04] MEDS: AMLODIPINE 10MG TABLET PO SCH (09:22)
[2023-02-04] MEDS: MULTIVITAMINS,THER W-MINERALS TABLET PO SCH (09:22)
[2023-02-04] MEDS: RISPERIDONE 0.25MG TABLET PO SCH (09:22)
[2023-02-04] MEDS: METOPROLOL TARTRATE 50MG TABLET PO SCH ×2 (09:23→21:43)
[2023-02-04] MEDS: ASPIRIN 81MG EC TABLET PO SCH (09:23)
[2023-02-04] MEDS: ACETAMINOPHEN 325MG TABLET PO PRN ×2 (09:23→18:06)
[2023-02-04 13:13] LABS: PLATELET ESTIMATE SLIGHTLY INCREASED
[2023-02-04] MEDS: CEFEPIME 1,000 MG in DEXTROSE 5% WATER 50 ML IV SCH (21:42)
[2023-02-05] VITALS (24 sets, daily range): BP systolic 101–134; BP diastolic 47–82
[2023-02-05] MEDS: NITROGLYCERIN OINT 1GM/INCH UDPKT TD SCH ×4 (00:35→21:07)
[2023-02-05] MEDS: HYDRALAZINE HCL 100MG TABLET PO SCH ×2 (00:42→09:00)
[2023-02-05 07:25] LABS: HEMATOCRIT. 36.6 % (42.0-52.0); HEMOGLOBIN. 12.6 g/dL (14.0-18.0); MEAN CORPUSCULAR VOLUME 81.2 fL (80.0-94.0); MEAN PLATELET VOLUME 8.3 fl (7.4-10.4); PLATELET 429 x1000/uL (130-400); RED BLOOD CELL COUNT 4.51 mill/uL (4.7-6.1); RED CELL DISTRIBUTION WIDTH 15.2 % (11.6-14.6)
[2023-02-05] MEDS: RISPERIDONE 0.25MG TABLET PO SCH (08:50)
[2023-02-05] MEDS: AMLODIPINE 10MG TABLET PO SCH (08:50)
[2023-02-05] MEDS: PANTOPRAZOLE SODIUM 40 MG/VIAL IV SCH (08:50)
[2023-02-05] MEDS: MULTIVITAMINS,THER W-MINERALS TABLET PO SCH (08:50)
[2023-02-05] MEDS: ZINC SULFATE 220 MG ( 50 ) CAPSULE PO SCH (08:51)
[2023-02-05] MEDS: ASPIRIN 81MG EC TABLET PO SCH (08:51)
[2023-02-05] MEDS: METOPROLOL TARTRATE 50MG TABLET PO SCH ×2 (08:52→21:07)
[2023-02-05] MEDS: NIFEDIPINE XL 60MG TAB PO SCH ×2 (09:15→17:29)
[2023-02-05] MEDS: AMIODARONE HCL 200 MG TABLET PO SCH ×2 (09:15→21:05)
[2023-02-05] MEDS: IPRATROPIUM BROMIDE (0.02%) 0.5MG/2.5ML NEB HHN SCH (09:35)
[2023-02-05] MEDS ORDERED: ALBUTEROL (0.083%) 2.5MG/3ML NEB HHN PRN (13:45)
[2023-02-05] MEDS ORDERED: IPRATROPIUM/ALBUTEROL 0.5-3(2.5)MG/3ML NEB HHN PRN (13:45)
[2023-02-05] MEDS ORDERED: IPRATROPIUM BROMIDE (0.02%) 0.5MG/2.5ML NEB HHN PRN (13:45)
[2023-02-05 16:33] LABS: PLATELET ESTIMATE INCREASED
[2023-02-05] MEDS: ACETAMINOPHEN 325MG TABLET PO PRN (21:05)
[2023-02-05] MEDS: CEFEPIME 1,000 MG in DEXTROSE 5% WATER 50 ML IV SCH (21:07)
[2023-02-06] VITALS: BP 119/56
[2023-02-06 04:00] VITALS: BP 118/62
[2023-02-06] MEDS: NITROGLYCERIN OINT 1GM/INCH UDPKT TD SCH ×3 (06:31→21:11)
[2023-02-06 06:49] LABS: HEMATOCRIT. 36.5 % (42.0-52.0); HEMOGLOBIN. 12.2 g/dL (14.0-18.0); MEAN CORPUSCULAR HEMOGLOBIN 27.3 pg (28.0-32.0); MEAN CORPUSCULAR VOLUME 81.4 fL (80.0-94.0); MEAN PLATELET VOLUME 8.3 fl (7.4-10.4); PLATELET 389 x1000/uL (130-400); RED BLOOD CELL COUNT 4.48 mill/uL (4.7-6.1); RED CELL DISTRIBUTION WIDTH 15.2 % (11.6-14.6)
[2023-02-06 08:00] VITALS: BP 139/73
[2023-02-06] MEDS: ASPIRIN 81MG EC TABLET PO SCH (09:00)
[2023-02-06] MEDS: ACETAMINOPHEN 325MG TABLET PO PRN ×2 (10:14→11:52)
[2023-02-06] MEDS: PANTOPRAZOLE SODIUM 40 MG/VIAL IV SCH (10:14)
[2023-02-06] MEDS: RISPERIDONE 0.25MG TABLET PO SCH (10:15)
[2023-02-06] MEDS: METOPROLOL TARTRATE 50MG TABLET PO SCH ×2 (10:15→21:00)
[2023-02-06] MEDS: MULTIVITAMINS,THER W-MINERALS TABLET PO SCH (10:15)
[2023-02-06] MEDS: NIFEDIPINE XL 60MG TAB PO SCH ×2 (10:15→17:00)
[2023-02-06] MEDS: ZINC SULFATE 220 MG ( 50 ) CAPSULE PO SCH (10:16)
[2023-02-06] MEDS: AMLODIPINE 10MG TABLET PO SCH (10:17)
[2023-02-06 10:24] LABS: INR 1.3
[2023-02-06] MEDS: AMIODARONE HCL 200 MG TABLET PO SCH ×2 (10:41→21:12)
[2023-02-06 12:30] VITALS: BP 100/58
[2023-02-06 12:32] LABS: PLATELET ESTIMATE NORMAL
[2023-02-06 16:00] VITALS: BP 103/62
[2023-02-06 20:00] VITALS: BP 120/55
[2023-02-06] MEDS: CEFEPIME 1,000 MG in DEXTROSE 5% WATER 50 ML IV SCH (21:11)
[2023-02-07] VITALS (15 sets, daily range): BP systolic 94–132; BP diastolic 45–70
[2023-02-07] MEDS: NITROGLYCERIN OINT 1GM/INCH UDPKT TD SCH ×3 (06:00→21:24)
[2023-02-07 07:28] LABS: HEMATOCRIT. 35.8 % (42.0-52.0); HEMOGLOBIN. 11.8 g/dL (14.0-18.0); MEAN CORPUSCULAR VOLUME 81.8 fL (80.0-94.0); MEAN PLATELET VOLUME 8.1 fl (7.4-10.4); PLATELET 340 x1000/uL (130-400); RED BLOOD CELL COUNT 4.38 mill/uL (4.7-6.1); RED CELL DISTRIBUTION WIDTH 15.1 % (11.6-14.6)
[2023-02-07] MEDS: PANTOPRAZOLE SODIUM 40 MG/VIAL IV SCH (08:56)
[2023-02-07] MEDS: NIFEDIPINE XL 60MG TAB PO SCH ×2 (08:57→16:27)
[2023-02-07] MEDS: METOPROLOL TARTRATE 50MG TABLET PO SCH ×2 (08:57→21:00)
[2023-02-07] MEDS: ASPIRIN 81MG EC TABLET PO SCH (08:58)
[2023-02-07] MEDS: RISPERIDONE 0.25MG TABLET PO SCH (08:58)
[2023-02-07] MEDS: AMIODARONE HCL 200 MG TABLET PO SCH ×3 (08:58→21:23)
[2023-02-07] MEDS: ZINC SULFATE 220 MG ( 50 ) CAPSULE PO SCH (08:59)
[2023-02-07] MEDS: AMLODIPINE 10MG TABLET PO SCH (08:59)
[2023-02-07] MEDS: MULTIVITAMINS,THER W-MINERALS TABLET PO SCH (08:59)
[2023-02-07 12:31] LABS: PHOSPHORUS 13.9 mg/dL (2.5-4.9)
[2023-02-07] MEDS: ACETAMINOPHEN 325MG TABLET PO PRN ×2 (16:26→18:13)
[2023-02-07 18:18] LABS: PLATELET ESTIMATE NORMAL
[2023-02-07] MEDS: CEFEPIME 1,000 MG in DEXTROSE 5% WATER 50 ML IV SCH (21:23)
[2023-02-08] VITALS (7 sets, daily range): BP systolic 122–147; BP diastolic 49–74
[2023-02-08] MEDS: NITROGLYCERIN OINT 1GM/INCH UDPKT TD SCH ×3 (06:05→21:25)
[2023-02-08] MEDS: PANTOPRAZOLE SODIUM 40 MG/VIAL IV SCH (08:34)
[2023-02-08] MEDS: ACETAMINOPHEN 325MG TABLET PO PRN (08:34)
[2023-02-08] MEDS: AMIODARONE HCL 200 MG TABLET PO SCH (08:35)
[2023-02-08] MEDS: METOPROLOL TARTRATE 50MG TABLET PO SCH (08:35)
[2023-02-08] MEDS: ZINC SULFATE 220 MG ( 50 ) CAPSULE PO SCH (08:36)
[2023-02-08] MEDS: NIFEDIPINE XL 60MG TAB PO SCH (08:36)
[2023-02-08] MEDS: MULTIVITAMINS,THER W-MINERALS TABLET PO SCH (08:36)
[2023-02-08] MEDS: AMLODIPINE 10MG TABLET PO SCH (08:37)
[2023-02-08] MEDS: RISPERIDONE 0.25MG TABLET PO SCH (08:38)
[2023-02-08] MEDS: ASPIRIN 81MG EC TABLET PO SCH (08:53)
[2023-02-08] MEDS ORDERED: CEFEPIME 1,000 MG in DEXTROSE 5% WATER 50 ML IV SCH (21:00)
[2023-02-08] MEDS: METOPROLOL TARTRATE 25MG TABLET PO SCH (21:25)
[2023-02-09] VITALS (21 sets, daily range): BP systolic 110–158; BP diastolic 58–98
[2023-02-09] MEDS: NITROGLYCERIN OINT 1GM/INCH UDPKT TD SCH ×3 (05:15→22:06)
[2023-02-09 05:42] LABS: BASOPHILS % 0.4 % (0.0-2.0); EOSINOPHILS % 3.6 % (0.0-5.0); HEMATOCRIT. 36.9 % (42.0-52.0); HEMOGLOBIN. 12.6 g/dL (14.0-18.0); MEAN CORPUSCULAR HEMOGLOBIN 28.1 pg (28.0-32.0); MEAN CORPUSCULAR VOLUME 82.6 fL (80.0-94.0); MEAN PLATELET VOLUME 8.5 fl (7.4-10.4); PLATELET 277 x1000/uL (130-400); RED BLOOD CELL COUNT 4.48 mill/uL (4.7-6.1); RED CELL DISTRIBUTION WIDTH 14.8 % (11.6-14.6)
[2023-02-09] MEDS: AMLODIPINE 10MG TABLET PO SCH (08:31)
[2023-02-09] MEDS: NIFEDIPINE XL 60MG TAB PO SCH (08:31)
[2023-02-09] MEDS: AMIODARONE HCL 200 MG TABLET PO SCH ×3 (08:35→09:12)
[2023-02-09] MEDS: ZINC SULFATE 220 MG ( 50 ) CAPSULE PO SCH (08:56)
[2023-02-09] MEDS: FOLIC ACID/VITAMIN B COMP W-C TABLET PO SCH (08:56)
[2023-02-09] MEDS: RISPERIDONE 0.25MG TABLET PO SCH (08:57)
[2023-02-09] MEDS: PANTOPRAZOLE SODIUM 40 MG/VIAL IV SCH (08:58)
[2023-02-09] MEDS: ASPIRIN 81MG EC TABLET PO SCH (08:58)
[2023-02-09] MEDS ORDERED: ALTEPLASE 2MG/VIAL ITC SCH (10:45)
[2023-02-09] MEDS: ENOXAPARIN 40MG/0.4ML SYR SUBCUT SCH (10:56)
[2023-02-09] MEDS: CALCIUM ACETATE 667MG CAPSULE PO SCH ×2 (13:33→18:00)
[2023-02-09] MEDS ORDERED: MEROPENEM-0.9% SODIUM CHLORIDE 50 ML IV SCH (16:00)
[2023-02-09] MEDS: METOPROLOL TARTRATE 25MG TABLET PO SCH (22:05)
[2023-02-10] VITALS: BP 123/74
[2023-02-10] MEDS ORDERED: SODIUM POLYSTYRENE SULFONATE 15 G/60 ML BOT PO NR (01:45)
[2023-02-10 04:00] VITALS: BP 135/62
[2023-02-10] MEDS: NITROGLYCERIN OINT 1GM/INCH UDPKT TD SCH ×3 (06:42→22:10)
[2023-02-10] MEDS: CLONIDINE 0.1MG TABLET PO PRN (06:42)
[2023-02-10 08:00] VITALS: BP 142/77
[2023-02-10 08:45] LABS: HEMATOCRIT. 35.4 % (42.0-52.0); MEAN CORPUSCULAR HEMOGLOBIN 27.6 pg (28.0-32.0); MEAN CORPUSCULAR VOLUME 81.5 fL (80.0-94.0); MEAN PLATELET VOLUME 8.7 fl (7.4-10.4); PLATELET 264 x1000/uL (130-400); RED BLOOD CELL COUNT 4.34 mill/uL (4.7-6.1); RED CELL DISTRIBUTION WIDTH 14.7 % (11.6-14.6)
[2023-02-10] MEDS: PANTOPRAZOLE SODIUM 40 MG/VIAL IV SCH (09:17)
[2023-02-10] MEDS: RISPERIDONE 0.25MG TABLET PO SCH (09:18)
[2023-02-10] MEDS: FOLIC ACID/VITAMIN B COMP W-C TABLET PO SCH (09:18)
[2023-02-10] MEDS: ASPIRIN 81MG EC TABLET PO SCH (09:18)
[2023-02-10] MEDS: NIFEDIPINE XL 60MG TAB PO SCH (09:18)
[2023-02-10] MEDS: AMIODARONE HCL 200 MG TABLET PO SCH (09:19)
[2023-02-10] MEDS: CALCIUM ACETATE 667MG CAPSULE PO SCH ×3 (09:19→18:13)
[2023-02-10] MEDS: ZINC SULFATE 220 MG ( 50 ) CAPSULE PO SCH (09:19)
[2023-02-10] MEDS: AMLODIPINE 10MG TABLET PO SCH (09:19)
[2023-02-10] MEDS: ACETAMINOPHEN 325MG TABLET PO PRN ×2 (09:41→20:33)
[2023-02-10] MEDS: ENOXAPARIN 40MG/0.4ML SYR SUBCUT SCH (10:48)
[2023-02-10 11:33] LABS: PLATELET ESTIMATE NORMAL
[2023-02-10 12:00] VITALS: BP 119/55
[2023-02-10] MEDS ORDERED: ENOXAPARIN 120MG/0.8ML SYR SUBCUT SCH (13:00)
[2023-02-10] MEDS ORDERED: ENOXAPARIN 80MG/0.8ML SYR SUBCUT SCH (14:00)
[2023-02-10 16:00] VITALS: BP 112/73
[2023-02-10] MEDS: MEROPENEM-0.9% SODIUM CHLORIDE 50 ML IV SCH (16:01)
[2023-02-10 20:00] VITALS: BP 141/69
[2023-02-10] MEDS: METOPROLOL TARTRATE 25MG TABLET PO SCH (20:33)
[2023-02-11] VITALS: BP 121/67
[2023-02-11 04:00] VITALS: BP 120/64
[2023-02-11] MEDS: NITROGLYCERIN OINT 1GM/INCH UDPKT TD SCH ×3 (05:46→22:01)
[2023-02-11 06:36] LABS: BASOPHILS % 0.7 % (0.0-2.0); HEMATOCRIT. 36.4 % (42.0-52.0); HEMOGLOBIN. 12.3 g/dL (14.0-18.0); LYMPHOCYTES % 7.9 % (20.0-50.0); MEAN CORPUSCULAR HEMOGLOBIN 27.4 pg (28.0-32.0); MEAN CORPUSCULAR VOLUME 81.2 fL (80.0-94.0); MEAN PLATELET VOLUME 8.5 fl (7.4-10.4); NEUTROPHILS % 80.4 % (40.0-76.0); PLATELET 234 x1000/uL (130-400); RED BLOOD CELL COUNT 4.48 mill/uL (4.7-6.1); RED CELL DISTRIBUTION WIDTH 14.6 % (11.6-14.6)
[2023-02-11 08:00] VITALS: BP 126/69
[2023-02-11] MEDS: FOLIC ACID/VITAMIN B COMP W-C TABLET PO SCH (08:36)
[2023-02-11] MEDS: PANTOPRAZOLE SODIUM 40 MG/VIAL IV SCH (08:37)
[2023-02-11] MEDS: ASPIRIN 81MG EC TABLET PO SCH (08:37)
[2023-02-11] MEDS: RISPERIDONE 0.25MG TABLET PO SCH (08:37)
[2023-02-11] MEDS: NIFEDIPINE XL 90MG TAB PO SCH (08:37)
[2023-02-11] MEDS: AMIODARONE HCL 200 MG TABLET PO SCH (08:38)
[2023-02-11] MEDS: ZINC SULFATE 220 MG ( 50 ) CAPSULE PO SCH (08:38)
[2023-02-11] MEDS: CALCIUM ACETATE 667MG CAPSULE PO SCH ×3 (08:38→17:58)
[2023-02-11] MEDS: ENOXAPARIN 120MG/0.8ML SYR SUBCUT SCH (10:00)
[2023-02-11 12:00] VITALS: BP 116/58
[2023-02-11] MEDS: MEROPENEM-0.9% SODIUM CHLORIDE 50 ML IV SCH (15:47)
[2023-02-11] MEDS: TRAMADOL 50MG TABLET PO PRN (15:54)
[2023-02-11 16:00] VITALS: BP 117/71
[2023-02-11 20:00] VITALS: BP 107/67
[2023-02-11] MEDS: METOPROLOL TARTRATE 25MG TABLET PO SCH (22:01)
[2023-02-12] VITALS (16 sets, daily range): BP systolic 98–126; BP diastolic 58–97
[2023-02-12] MEDS: NITROGLYCERIN OINT 1GM/INCH UDPKT TD SCH (05:35)
[2023-02-12 06:32] LABS: HEMATOCRIT. 37.2 % (42.0-52.0); HEMOGLOBIN. 12.6 g/dL (14.0-18.0); MEAN CORPUSCULAR HEMOGLOBIN 27.8 pg (28.0-32.0); MEAN CORPUSCULAR VOLUME 81.8 fL (80.0-94.0); MEAN PLATELET VOLUME 8.8 fl (7.4-10.4); PLATELET 236 x1000/uL (130-400); RED BLOOD CELL COUNT 4.54 mill/uL (4.7-6.1); RED CELL DISTRIBUTION WIDTH 14.6 % (11.6-14.6)
[2023-02-12] MEDS: NIFEDIPINE XL 90MG TAB PO SCH (09:00)
[2023-02-12] MEDS: PANTOPRAZOLE SODIUM 40 MG/VIAL IV SCH (09:41)
[2023-02-12] MEDS: ZINC SULFATE 220 MG ( 50 ) CAPSULE PO SCH (09:41)
[2023-02-12] MEDS: AMIODARONE HCL 200 MG TABLET PO SCH (09:41)
[2023-02-12] MEDS: RISPERIDONE 0.25MG TABLET PO SCH (09:41)
[2023-02-12] MEDS: CALCIUM ACETATE 667MG CAPSULE PO SCH ×3 (09:42→19:12)
[2023-02-12] MEDS: ASPIRIN 81MG EC TABLET PO SCH (09:42)
[2023-02-12] MEDS: ACETAMINOPHEN 325MG TABLET PO PRN ×2 (09:42→16:17)
[2023-02-12] MEDS: ENOXAPARIN 120MG/0.8ML SYR SUBCUT SCH (09:43)
[2023-02-12] MEDS: FOLIC ACID/VITAMIN B COMP W-C TABLET PO SCH (09:55)
[2023-02-12] MEDS ORDERED: AMIODARONE HCL 150 MG in DEXT 5% WATER 100 ML IV NR (10:30)
[2023-02-12] MEDS ORDERED: AMIODARONE HCL 900 MG in DEXT 5% WATER 482 ML IV SCH (10:30)
[2023-02-12 13:10] LABS: PLATELET ESTIMATE NORMAL
[2023-02-12] MEDS ORDERED: NALOXONE HCL 0.4MG/ML VIAL IV PRN (14:00)
[2023-02-12] MEDS: MEROPENEM-0.9% SODIUM CHLORIDE 50 ML IV SCH (18:36)
[2023-02-12] MEDS: METOPROLOL TARTRATE 25MG TABLET PO SCH (21:00)
[2023-02-13] VITALS (12 sets, daily range): BP systolic 103–139; BP diastolic 54–91
[2023-02-13 06:17] LABS: HEMATOCRIT. 34.1 % (42.0-52.0); HEMOGLOBIN. 11.7 g/dL (14.0-18.0); MEAN CORPUSCULAR HEMOGLOBIN 28.1 pg (28.0-32.0); MEAN CORPUSCULAR VOLUME 81.4 fL (80.0-94.0); MEAN PLATELET VOLUME 8.9 fl (7.4-10.4); PLATELET 189 x1000/uL (130-400); RED BLOOD CELL COUNT 4.19 mill/uL (4.7-6.1); RED CELL DISTRIBUTION WIDTH 14.5 % (11.6-14.6)
[2023-02-13] MEDS: PANTOPRAZOLE SODIUM 40 MG/VIAL IV SCH (09:54)
[2023-02-13] MEDS: AMIODARONE HCL 200 MG TABLET PO SCH ×2 (09:55→17:00)
[2023-02-13] MEDS: NIFEDIPINE XL 60MG TAB PO SCH (09:55)
[2023-02-13] MEDS: RISPERIDONE 0.25MG TABLET PO SCH (09:56)
[2023-02-13] MEDS: ZINC SULFATE 220 MG ( 50 ) CAPSULE PO SCH (09:56)
[2023-02-13] MEDS: FOLIC ACID/VITAMIN B COMP W-C TABLET PO SCH (09:56)
[2023-02-13] MEDS: ASPIRIN 81MG EC TABLET PO SCH (09:56)
[2023-02-13] MEDS: METOPROLOL TARTRATE 25MG TABLET PO SCH ×2 (09:56→20:10)
[2023-02-13] MEDS: ACETAMINOPHEN 325MG TABLET PO PRN (09:57)
[2023-02-13] MEDS: CALCIUM ACETATE 667MG CAPSULE PO SCH ×3 (09:57→17:37)
[2023-02-13 11:50] LABS: PLATELET ESTIMATE NORMAL
[2023-02-13] MEDS: DEXT 5%/0.9% NACL 1,000 ML IV SCH (17:28)
[2023-02-13] MEDS: MEROPENEM 1000MG in NORMAL SALINE 100ML IV SCH (17:28)
[2023-02-13] MEDS: METOCLOPRAMIDE HCL 10MG/2ML VIAL IV SCH ×2 (17:46→23:54)
[2023-02-13] MEDS: ENOXAPARIN 100MG/ML SYR SUBCUT SCH (17:47)
[2023-02-14] VITALS (18 sets, daily range): BP systolic 101–143; BP diastolic 52–87
[2023-02-14] MEDS: METOCLOPRAMIDE HCL 10MG/2ML VIAL IV SCH ×2 (05:52→12:14)
[2023-02-14 06:17] LABS: BASOPHILS % 0.4 % (0.0-2.0); EOSINOPHILS % 0.3 % (0.0-5.0); HEMATOCRIT. 38.7 % (42.0-52.0); HEMOGLOBIN. 12.8 g/dL (14.0-18.0); LYMPHOCYTES % 7.5 % (20.0-50.0); MEAN CORPUSCULAR HEMOGLOBIN 27.3 pg (28.0-32.0); MEAN CORPUSCULAR VOLUME 82.5 fL (80.0-94.0); MEAN PLATELET VOLUME 8.6 fl (7.4-10.4); MONOCYTES % 11.4 % (2.0-8.0); NEUTROPHILS % 80.4 % (40.0-76.0); PLATELET 223 x1000/uL (130-400); RED BLOOD CELL COUNT 4.69 mill/uL (4.7-6.1); RED CELL DISTRIBUTION WIDTH 14.7 % (11.6-14.6)
[2023-02-14] MEDS: DEXT 5%/0.9% NACL 1,000 ML IV SCH (08:40)
[2023-02-14] MEDS: ENOXAPARIN 100MG/ML SYR SUBCUT SCH (10:00)
[2023-02-14] MEDS: PANTOPRAZOLE SODIUM 40 MG/VIAL IV SCH (10:00)
[2023-02-14] MEDS: AMIODARONE HCL 200 MG TABLET PO SCH ×2 (10:00→16:47)
[2023-02-14] MEDS: METOPROLOL TARTRATE 25MG TABLET PO SCH ×2 (10:01→21:17)
[2023-02-14] MEDS: FOLIC ACID/VITAMIN B COMP W-C TABLET PO SCH (10:01)
[2023-02-14] MEDS: CALCIUM ACETATE 667MG CAPSULE PO SCH ×3 (10:01→18:46)
[2023-02-14] MEDS: RISPERIDONE 0.25MG TABLET PO SCH (10:02)
[2023-02-14] MEDS: ASPIRIN 81MG EC TABLET PO SCH (10:02)
[2023-02-14] MEDS: NIFEDIPINE XL 60MG TAB PO SCH (10:02)
[2023-02-14] MEDS: ZINC SULFATE 220 MG ( 50 ) CAPSULE PO SCH (10:02)
[2023-02-14] MEDS: MEROPENEM 1000MG in NORMAL SALINE 100ML IV SCH (16:47)
[2023-02-15] VITALS (12 sets, daily range): BP systolic 123–160; BP diastolic 60–96
[2023-02-15] MEDS: DEXT 5%/0.9% NACL 1,000 ML IV SCH ×2 (01:20→18:48)
[2023-02-15] MEDS: ACETAMINOPHEN 325MG TABLET PO PRN (03:43)
[2023-02-15 06:04] LABS: BASOPHILS % 0.5 % (0.0-2.0); EOSINOPHILS % 0.7 % (0.0-5.0); HEMATOCRIT. 35.5 % (42.0-52.0); HEMOGLOBIN. 11.8 g/dL (14.0-18.0); MEAN CORPUSCULAR HEMOGLOBIN 27.5 pg (28.0-32.0); MEAN CORPUSCULAR VOLUME 82.4 fL (80.0-94.0); MEAN PLATELET VOLUME 8.5 fl (7.4-10.4); MONOCYTES % 12.3 % (2.0-8.0); NEUTROPHILS % 80.5 % (40.0-76.0); PLATELET 203 x1000/uL (130-400); RED BLOOD CELL COUNT 4.31 mill/uL (4.7-6.1); RED CELL DISTRIBUTION WIDTH 14.5 % (11.6-14.6)
[2023-02-15] MEDS: NIFEDIPINE XL 60MG TAB PO SCH (08:51)
[2023-02-15] MEDS: FOLIC ACID/VITAMIN B COMP W-C TABLET PO SCH (08:51)
[2023-02-15] MEDS: ZINC SULFATE 220 MG ( 50 ) CAPSULE PO SCH (08:51)
[2023-02-15] MEDS: PANTOPRAZOLE SODIUM 40 MG/VIAL IV SCH (08:51)
[2023-02-15] MEDS: RISPERIDONE 0.25MG TABLET PO SCH (08:51)
[2023-02-15] MEDS: CALCIUM ACETATE 667MG CAPSULE PO SCH ×2 (08:51→13:18)
[2023-02-15] MEDS: METOPROLOL TARTRATE 25MG TABLET PO SCH ×2 (08:52→20:23)
[2023-02-15] MEDS: AMIODARONE HCL 200 MG TABLET PO SCH (09:00)
[2023-02-15] MEDS: ENOXAPARIN 100MG/ML SYR SUBCUT SCH (09:59)
[2023-02-15] MEDS: ASPIRIN 81MG EC TABLET PO SCH (10:31)
[2023-02-15] MEDS: TRAMADOL 50MG TABLET PO PRN (13:20)
[2023-02-15] MEDS: MEROPENEM-0.9% SODIUM CHLORIDE 50 ML IV SCH (16:17)
[2023-02-15] MEDS: METOCLOPRAMIDE HCL 10MG/2ML VIAL IV SCH ×2 (18:48→23:51)
[2023-02-16] VITALS (18 sets, daily range): BP systolic 115–160; BP diastolic 56–89
[2023-02-16] MEDS: TRAMADOL 50MG TABLET PO PRN (01:13)
[2023-02-16 05:19] LABS: BASOPHILS % 0.6 % (0.0-2.0); EOSINOPHILS % 1.3 % (0.0-5.0); HEMATOCRIT. 30.9 % (42.0-52.0); HEMOGLOBIN. 10.5 g/dL (14.0-18.0); LYMPHOCYTES % 7.7 % (20.0-50.0); MEAN CORPUSCULAR HEMOGLOBIN 27.6 pg (28.0-32.0); MEAN CORPUSCULAR VOLUME 81.8 fL (80.0-94.0); MEAN PLATELET VOLUME 8.5 fl (7.4-10.4); MONOCYTES % 12.6 % (2.0-8.0); NEUTROPHILS % 77.8 % (40.0-76.0); PLATELET 193 x1000/uL (130-400); RED BLOOD CELL COUNT 3.78 mill/uL (4.7-6.1); RED CELL DISTRIBUTION WIDTH 14.7 % (11.6-14.6)
[2023-02-16] MEDS: METOCLOPRAMIDE HCL 10MG/2ML VIAL IV SCH ×3 (05:56→17:04)
[2023-02-16 06:03] LABS: CHLORIDE 97 mEq/L (98-107)
[2023-02-16] MEDS: RISPERIDONE 0.25MG TABLET PO SCH (08:51)
[2023-02-16] MEDS: FOLIC ACID/VITAMIN B COMP W-C TABLET PO SCH (08:51)
[2023-02-16] MEDS: PANTOPRAZOLE SODIUM 40 MG/VIAL IV SCH (08:51)
[2023-02-16] MEDS: METOPROLOL TARTRATE 25MG TABLET PO SCH ×2 (08:53→21:08)
[2023-02-16] MEDS: ZINC SULFATE 220 MG ( 50 ) CAPSULE PO SCH (08:53)
[2023-02-16] MEDS: CALCIUM ACETATE 667MG CAPSULE PO SCH ×3 (08:54→17:04)
[2023-02-16] MEDS: NIFEDIPINE XL 60MG TAB PO SCH (08:56)
[2023-02-16] MEDS: DEXT 5%/0.9% NACL 1,000 ML IV SCH (08:56)
[2023-02-16] MEDS: ASPIRIN 81MG EC TABLET PO SCH (08:58)
[2023-02-16] MEDS: ENOXAPARIN 40MG/0.4ML SYR SUBCUT SCH (14:57)
[2023-02-16] MEDS ORDERED: TRAMADOL 50MG TABLET PO PRN (16:30)
[2023-02-16] MEDS: MEROPENEM-0.9% SODIUM CHLORIDE 50 ML IV SCH (17:03)
[2023-02-17] VITALS (11 sets, daily range): BP systolic 114–149; BP diastolic 63–80
[2023-02-17] MEDS: METOCLOPRAMIDE HCL 10MG/2ML VIAL IV SCH (00:16)
[2023-02-17] MEDS: DEXT 5%/0.9% NACL 1,000 ML IV SCH (03:24)
[2023-02-17 06:39] LABS: HEMATOCRIT. 30.1 % (42.0-52.0); HEMOGLOBIN. 10.4 g/dL (14.0-18.0); MEAN CORPUSCULAR HEMOGLOBIN 28.4 pg (28.0-32.0); MEAN PLATELET VOLUME 8.2 fl (7.4-10.4); PLATELET 189 x1000/uL (130-400); RED BLOOD CELL COUNT 3.67 mill/uL (4.7-6.1); RED CELL DISTRIBUTION WIDTH 14.6 % (11.6-14.6)
[2023-02-17] MEDS: CALCIUM ACETATE 667MG CAPSULE PO SCH ×3 (06:51→16:35)
[2023-02-17] MEDS: PANTOPRAZOLE SODIUM 40 MG/VIAL IV SCH (09:30)
[2023-02-17] MEDS: FOLIC ACID/VITAMIN B COMP W-C TABLET PO SCH (09:31)
[2023-02-17] MEDS: ASPIRIN 81MG EC TABLET PO SCH (09:31)
[2023-02-17] MEDS: ZINC SULFATE 220 MG ( 50 ) CAPSULE PO SCH (09:31)
[2023-02-17] MEDS: ENOXAPARIN 40MG/0.4ML SYR SUBCUT SCH (09:31)
[2023-02-17] MEDS: NIFEDIPINE XL 60MG TAB PO SCH (09:32)
[2023-02-17] MEDS: METOPROLOL TARTRATE 25MG TABLET PO SCH ×2 (09:33→21:34)
[2023-02-17] MEDS: RISPERIDONE 0.25MG TABLET PO SCH (09:45)
[2023-02-17 10:03] LABS: PLATELET ESTIMATE NORMAL
[2023-02-17] MEDS: MEROPENEM-0.9% SODIUM CHLORIDE 50 ML IV SCH (15:33)
[2023-02-17] MEDS: ACETAMINOPHEN 325MG TABLET PO PRN (21:34)
[2023-02-18] VITALS (50 sets, daily range): BP systolic 69–152; BP diastolic 31–86
[2023-02-18] MEDS: FOLIC ACID/VITAMIN B COMP W-C TABLET PO SCH (08:07)
[2023-02-18] MEDS: PANTOPRAZOLE SODIUM 40 MG/VIAL IV SCH (08:07)
[2023-02-18] MEDS: CALCIUM ACETATE 667MG CAPSULE PO SCH ×4 (08:07→17:32)
[2023-02-18] MEDS: ACETAMINOPHEN 325MG TABLET PO PRN (08:07)
[2023-02-18] MEDS: NIFEDIPINE XL 60MG TAB PO SCH (08:07)
[2023-02-18] MEDS: ZINC SULFATE 220 MG ( 50 ) CAPSULE PO SCH (08:08)
[2023-02-18] MEDS: ASPIRIN 81MG EC TABLET PO SCH (08:08)
[2023-02-18] MEDS: RISPERIDONE 0.25MG TABLET PO SCH (08:08)
[2023-02-18] MEDS: METOPROLOL TARTRATE 25MG TABLET PO SCH ×2 (08:08→21:00)
[2023-02-18] MEDS: ENOXAPARIN 40MG/0.4ML SYR SUBCUT SCH (09:34)
[2023-02-18] MEDS ORDERED: NIFEDIPINE XL 30MG TAB PO NR (10:15)
[2023-02-18] MEDS ORDERED: SODIUM CHLORIDE 0.9% 500 ML IV ONE (11:45)
[2023-02-18] MEDS ORDERED: ACETAMINOPHEN 650MG SUPP PR PRN (12:30)
[2023-02-18] MEDS: PHENYLEPHRINE 100 MG in DEXT 5% WATER 240 ML IV PRN ×2 (12:55→17:18)
[2023-02-18 12:58] LABS: BG BASE EXCESS -9.3 mmol/L (-2.0-2.0); BG CARBOXYHEMOGLOBIN 0.3 % (0.5-1.5); BG FRACTION INSPIRED OXYGEN 100; BG HCO3 ACT 13.8 mmol/L (22.0-26.0); BG METHEMOGLOBIN 0.3 % (0.0-1.5); BG OXYHEMOGLOBIN 98.4 % (94.0-97.0); BG PCO2 22.6 mmHg (35.0-45.0); BG PH 7.405 (7.350-7.450); BG PO2 281.6 mmHg (75.0-100.0); BG SAMPLE SITE RIGHT RADIAL; BG TOTAL HEMOGLOBIN 10.2 g/dL (12.0-18.0); BG VENT MODE MASK - NRB
[2023-02-18] MEDS ORDERED: VASOPRESSIN 20 UNIT in SODIUM CHLORIDE 0.9% 99 ML IV PRN (13:30)
[2023-02-18] MEDS: MEROPENEM-0.9% SODIUM CHLORIDE 50 ML IV SCH (17:17)
[2023-02-18 18:37] LABS: HEMATOCRIT. 30.7 % (42.0-52.0); HEMOGLOBIN. 10.1 g/dL (14.0-18.0); MEAN CORPUSCULAR HEMOGLOBIN 27.8 pg (28.0-32.0); MEAN CORPUSCULAR VOLUME 84.8 fL (80.0-94.0); MEAN PLATELET VOLUME 8.4 fl (7.4-10.4); PLATELET 273 x1000/uL (130-400); RED BLOOD CELL COUNT 3.62 mill/uL (4.7-6.1); RED CELL DISTRIBUTION WIDTH 15.1 % (11.6-14.6)
[2023-02-18] MEDS ORDERED: VANCOMYCIN 2,000 MG in DEXT 5% WATER 500 ML IV NR (21:00)
[2023-02-18] MEDS: AZITHROMYCIN 500 MG TABLET PO SCH (21:00)
[2023-02-18 23:35] LABS: PLATELET ESTIMATE NORMAL
[2023-02-19] VITALS (92 sets, daily range): BP systolic 82–157; BP diastolic 47–86
[2023-02-19] MEDS: PHENYLEPHRINE 100 MG in DEXT 5% WATER 240 ML IV PRN ×2 (02:26→08:47)
[2023-02-19 05:44] LABS: HEMATOCRIT. 30.3 % (42.0-52.0); HEMOGLOBIN. 10.1 g/dL (14.0-18.0); MEAN CORPUSCULAR HEMOGLOBIN 27.7 pg (28.0-32.0); MEAN PLATELET VOLUME 8.4 fl (7.4-10.4); PLATELET 263 x1000/uL (130-400); RED BLOOD CELL COUNT 3.65 mill/uL (4.7-6.1); RED CELL DISTRIBUTION WIDTH 14.9 % (11.6-14.6)
[2023-02-19] MEDS ORDERED: SODIUM POLYSTYRENE SULFONATE 15 G/60 ML BOT PO SCH (07:00)
[2023-02-19] MEDS: ZINC SULFATE 220 MG ( 50 ) CAPSULE PO SCH (08:54)
[2023-02-19] MEDS: RISPERIDONE 0.25MG TABLET PO SCH (08:54)
[2023-02-19] MEDS: PANTOPRAZOLE SODIUM 40 MG/VIAL IV SCH (08:54)
[2023-02-19] MEDS: ASPIRIN 81MG EC TABLET PO SCH ×2 (08:54→09:00)
[2023-02-19] MEDS: CALCIUM ACETATE 667MG CAPSULE PO SCH ×4 (08:54→20:21)
[2023-02-19] MEDS: FOLIC ACID/VITAMIN B COMP W-C TABLET PO SCH (08:58)
[2023-02-19] MEDS ORDERED: NIFEDIPINE XL 90MG TAB PO SCH (09:00)
[2023-02-19] MEDS: METOPROLOL TARTRATE 25MG TABLET PO SCH ×2 (09:00→20:21)
[2023-02-19 10:04] LABS: PLATELET ESTIMATE NORMAL
[2023-02-19] MEDS ORDERED: PHENYLEPHRINE 100 MG in DEXT 5% WATER 240 ML IV PRN (10:32)
[2023-02-19] MEDS: MEROPENEM-0.9% SODIUM CHLORIDE 50 ML IV SCH (15:19)
[2023-02-19] MEDS ORDERED: NALOXONE HCL 0.4MG/ML VIAL IV PRN (16:00)
[2023-02-19] MEDS: NIFEDIPINE XL 30MG TAB PO SCH (16:45)
[2023-02-19] MEDS: AZITHROMYCIN 500 MG TABLET PO SCH (20:21)
[2023-02-19 22:31] LABS: PHOSPHORUS 8.9 mg/dL (2.5-4.9)
[2023-02-20] VITALS (47 sets, daily range): BP systolic 86–139; BP diastolic 46–84
[2023-02-20 05:37] LABS: HEMATOCRIT. 27.4 % (42.0-52.0); HEMOGLOBIN. 9.2 g/dL (14.0-18.0); MEAN CORPUSCULAR HEMOGLOBIN 27.8 pg (28.0-32.0); MEAN CORPUSCULAR VOLUME 83.1 fL (80.0-94.0); MEAN PLATELET VOLUME 8.3 fl (7.4-10.4); PLATELET 159 x1000/uL (130-400); RED CELL DISTRIBUTION WIDTH 14.5 % (11.6-14.6)
[2023-02-20] MEDS: ASPIRIN 81MG EC TABLET PO SCH (09:00)
[2023-02-20] MEDS: NIFEDIPINE XL 30MG TAB PO SCH (09:00)
[2023-02-20] MEDS: PANTOPRAZOLE SODIUM 40 MG/VIAL IV SCH (09:13)
[2023-02-20] MEDS: ZINC SULFATE 220 MG ( 50 ) CAPSULE PO SCH (09:13)
[2023-02-20] MEDS: FOLIC ACID/VITAMIN B COMP W-C TABLET PO SCH (09:13)
[2023-02-20] MEDS: RISPERIDONE 0.25MG TABLET PO SCH (09:13)
[2023-02-20] MEDS: METOPROLOL TARTRATE 25MG TABLET PO SCH (09:15)
[2023-02-20 11:00] LABS: PLATELET ESTIMATE NORMAL
[2023-02-20] MEDS: CALCIUM ACETATE 667MG CAPSULE PO SCH ×2 (13:37→19:09)
[2023-02-20] MEDS: ACETAMINOPHEN 325MG TABLET PO PRN (13:38)
[2023-02-20] MEDS: MEROPENEM-0.9% SODIUM CHLORIDE 50 ML IV SCH (15:53)
[2023-02-21] VITALS: BP 128/79
[2023-02-21 02:00] VITALS: BP 115/78
[2023-02-21 04:00] VITALS: BP 125/79
[2023-02-21] MEDS: ACETAMINOPHEN 325MG TABLET PO PRN (05:17)
[2023-02-21 05:31] LABS: HEMATOCRIT. 28.8 % (42.0-52.0); HEMOGLOBIN. 9.6 g/dL (14.0-18.0); MEAN CORPUSCULAR HEMOGLOBIN 27.7 pg (28.0-32.0); MEAN CORPUSCULAR VOLUME 83.3 fL (80.0-94.0); MEAN PLATELET VOLUME 8.3 fl (7.4-10.4); PLATELET 155 x1000/uL (130-400); RED BLOOD CELL COUNT 3.46 mill/uL (4.7-6.1); RED CELL DISTRIBUTION WIDTH 14.9 % (11.6-14.6)
[2023-02-21 06:00] VITALS: BP 126/69
[2023-02-21 06:15] LABS: PLATELET ESTIMATE NORMAL
[2023-02-21] MEDS: CALCIUM ACETATE 667MG CAPSULE PO SCH ×2 (06:43→12:31)
[2023-02-21 08:00] VITALS: BP 154/90
[2023-02-21] MEDS: FOLIC ACID/VITAMIN B COMP W-C TABLET PO SCH (09:08)
[2023-02-21] MEDS: ZINC SULFATE 220 MG ( 50 ) CAPSULE PO SCH (09:08)
[2023-02-21] MEDS: RISPERIDONE 0.25MG TABLET PO SCH (09:08)
[2023-02-21] MEDS: ASPIRIN 81MG EC TABLET PO SCH (09:09)
[2023-02-21 10:00] VITALS: BP 152/85
[2023-02-21] MEDS ORDERED: SODIUM BICARBONATE 8.4% 1 MEQ/ML 50ML SYR IV ONE (15:58)
[2023-02-21] MEDS ORDERED: EPINEPHRINE 0.1MG/ML (1:10,000) 10ML SYR ONE (15:58)
[2023-02-21] MEDS ORDERED: AMIODARONE HCL 50MG/ML 3ML VIAL IV ONE (15:58)
[2023-02-21] MEDS ORDERED: CALCIUM CHLORIDE 1GM/10ML SYR IV ONE (15:58)
[2023-02-21] MEDS ORDERED: DEXTROSE 50% WATER 50ML SYRINGE IV ONE (15:58)
[2023-02-21] MEDS ORDERED: VANCOMYCIN 1.25GM PMX (XELLIA) 250 ML IV NR (18:00)
== END 2023-02-21 19:00 | DRG 720 ==
LOC: ER 01:26 → MICUSO 04:53 → 7EST 18:35 → MICUNO 01-22 05:23 → MICUSO 01-24 23:45 → CVICU 01-27 08:18 → 5EST 02-01 12:20 → MICUNO 02-15 17:20 → 7WST 02-17 18:34 → CVICU 02-18 13:09 → MICUNO 02-20 23:32
PROVIDERS: ADMIT Internal Medicine; ATTEND Internal Medicine
PROC: 02HV33Z Insertion of Infusion Device into Superior Vena Cava, Percutaneous Approach (ICD-10-PCS; 2023-01-23)
PROC: B548ZZA Ultrasonography of Superior Vena Cava, Guidance (ICD-10-PCS; 2023-01-23)
PROC: 4A00X4Z Measurement of Central Nervous Electrical Activity, External Approach (ICD-10-PCS; 2023-01-23)
PROC: 5A1D70Z Performance of Urinary Filtration, Intermittent, Less than 6 Hours Per Day (ICD-10-PCS; 2023-01-23)
PROC: 5A1D70Z Performance of Urinary Filtration, Intermittent, Less than 6 Hours Per Day (ICD-10-PCS; 2023-01-24)
PROC: 5A1D70Z Performance of Urinary Filtration, Intermittent, Less than 6 Hours Per Day (ICD-10-PCS; 2023-01-26)
PROC: 5A1D70Z Performance of Urinary Filtration, Intermittent, Less than 6 Hours Per Day (ICD-10-PCS; 2023-01-28)
PROC: 5A1D70Z Performance of Urinary Filtration, Intermittent, Less than 6 Hours Per Day (ICD-10-PCS; 2023-01-30)
PROC: 5A1D70Z Performance of Urinary Filtration, Intermittent, Less than 6 Hours Per Day (ICD-10-PCS; 2023-02-01)
PROC: 5A1D70Z Performance of Urinary Filtration, Intermittent, Less than 6 Hours Per Day (ICD-10-PCS; 2023-02-03)
PROC: 5A1D70Z Performance of Urinary Filtration, Intermittent, Less than 6 Hours Per Day (ICD-10-PCS; 2023-02-05)
PROC: 02HV33Z Insertion of Infusion Device into Superior Vena Cava, Percutaneous Approach (ICD-10-PCS; 2023-02-06)
PROC: B548ZZA Ultrasonography of Superior Vena Cava, Guidance (ICD-10-PCS; 2023-02-06)
PROC: 5A1D70Z Performance of Urinary Filtration, Intermittent, Less than 6 Hours Per Day (ICD-10-PCS; 2023-02-07)
PROC: 5A1D70Z Performance of Urinary Filtration, Intermittent, Less than 6 Hours Per Day (ICD-10-PCS; 2023-02-09)
PROC: 5A1D70Z Performance of Urinary Filtration, Intermittent, Less than 6 Hours Per Day (ICD-10-PCS; 2023-02-12)
PROC: 5A1D70Z Performance of Urinary Filtration, Intermittent, Less than 6 Hours Per Day (ICD-10-PCS; 2023-02-14)
PROC: 5A1D70Z Performance of Urinary Filtration, Intermittent, Less than 6 Hours Per Day (ICD-10-PCS; 2023-02-16)
PROC: 5A1D70Z Performance of Urinary Filtration, Intermittent, Less than 6 Hours Per Day (ICD-10-PCS; 2023-02-19)
PROC: 0BH17EZ Insertion of Endotracheal Airway into Trachea, Via Natural or Artificial Opening (ICD-10-PCS; principal; 2023-02-21)
PROC: 5A12012 Performance of Cardiac Output, Single, Manual (ICD-10-PCS; 2023-02-21)
PROC: 5A1935Z Respiratory Ventilation, Less than 24 Consecutive Hours (ICD-10-PCS; 2023-02-21)
DX: A41.9 Sepsis, unspecified organism (principal); I71.02 Dissection of abdominal aorta; I71.019 Dissection of thoracic aorta, unspecified; I77.71 Dissection of carotid artery; I63.9 Cerebral infarction, unspecified; J18.9 Pneumonia, unspecified organism; E83.51 Hypocalcemia; J90 Pleural effusion, not elsewhere classified; D63.1 Anemia in chronic kidney disease; I48.92 Unspecified atrial flutter; I48.0 Paroxysmal atrial fibrillation; G93.40 Encephalopathy, unspecified; Z20.822 Contact with and (suspected) exposure to COVID-19; N17.0 Acute kidney failure with tubular necrosis; I16.0 Hypertensive urgency; G47.33 Obstructive sleep apnea (adult) (pediatric); I65.21 Occlusion and stenosis of right carotid artery; J98.11 Atelectasis; I31.39 Other pericardial effusion (noninflammatory); E87.1 Hypo-osmolality and hyponatremia; R06.03 Acute respiratory distress; E66.09 Other obesity due to excess calories; R65.21 Severe sepsis with septic shock; N18.30 Chronic kidney disease, stage 3 unspecified; E87.5 Hyperkalemia; I44.0 Atrioventricular block, first degree; I12.9 Hypertensive chronic kidney disease with stage 1 through stage 4 chronic kidney disease, or unspecified chronic kidney disease; I25.2 Old myocardial infarction; Z68.32 Body mass index [BMI] 32.0-32.9, adult; Z87.442 Personal history of urinary calculi; Z99.2 Dependence on renal dialysis; Z79.82 Long term (current) use of aspirin; Z79.899 Other long term (current) drug therapy
CPT/HCPCS: 31500; 36415; 36556; 36600; 70496; 70498; 70551; 71045; 71275; 74018; 74174; 74177; 76937; 80048; 80053; 80076; 80202; 80305; 81003; 82140; 82375; 82550; 82805; 82962; 83735; 83880; 84100; 84145; 84484; 85025; 86705; 86706; 86709; 86803; 87015; 87045; 87340; 87426; 87427; 87449; 89055; 90935; 92523; 92610; 92950; 93005; 93306; 94640; 95816; 97110; 97163; 97166; 97530; 97535; 99285; A6261; C1752; C1893; C9113; C9803; J0282; J0360; J0692; J1170; J1644; J1650; J2060; J2185; J2270; J2370; J2405; J2543; J2765; J2997; J3370; J3490; J7042; J7050; J7060; Q9967; A4315; A5200